=== PATIENT | male | born 1980 | race Caucasian/White ===

== ENCOUNTER 2025-01-13 03:00 | Inpatient (IN) | payer MEDICAID, OTHER ==
[2025-01-13] MEDS: SODIUM CHLORIDE 0.9% 1,000 ML IV STA ×2 (03:55→04:58)
[2025-01-13] MEDS: MAGNESIUM SULFATE-D5W PMX 1 GM in DEXTROSE/WATER 1 100ML.BAG IVPB ONE (03:56)
--- NOTE | 2025-01-13 04:00 | ED ---
General Adult HPI - General Chief complaint: Psychiatric Symptoms Stated complaint: suicidal Time Seen by Provider: 01/13/25 03:05 Source: patient, police, EMS, RN notes reviewed, old records reviewed Mode of arrival: EMS Limitations: no limitations - History of Present Illness Initial comments: 44-year-old male who presents emergency department after an intentional overdose. Patient states that he has been going through more stress than just wanted to stop it. Intentionally overdose with the intent of harming and killing himself. He drank half 1/5 of vodka this evening and took a handful of his trazodone tablets. We do estimate it to be approximately 17 tablets of 100 mg of tab trazodone. He filled his prescriptions on the and took a tablet on the in the evening. And then this evening, 01/12 he dumped pills in his palm and took them. Did not count them out. Prescription bottle had a total of 30 tablets. 12 tablets remaining. Fill date, as stated above was January 11. He currently denies any acute complaints. Denies homicidal ideations, times complaints. Denies any hallucinations. Presents for further evaluation at this time. - Related Data Home Medications Medication Instructions Recorded Confirmed levETIRAcetam [Keppra] 500 mg PO Q12HR 09/03/24 09/03/24 Previous Rx's Medication Instructions Recorded Folic Acid 1 mg PO DAILY 30 Days #30 tab 09/05/24 Melatonin [Melatonin Tr] 10 mg PO HS 30 Days #30 tab 09/05/24 Multivitamins, Thera [Multivitamin 1 each PO DAILY 30 Days #30 tab 09/05/24 (formulary)] Naltrexone HCl [Revia] 50 mg PO DAILY 30 Days #30 tab 09/05/24 Sertraline [Zoloft] 50 mg PO DAILY 30 Days #30 tab 09/05/24 Thiamine [Vitamin B-1] 100 mg PO DAILY 30 Days #30 tab 09/05/24 levETIRAcetam [Keppra] 500 mg PO Q12HR tab 09/05/24 traZODone HCL [Desyrel] 50 mg PO HS 30 Days #30 tab 09/05/24 Allergies Allergy/AdvReac Type Severity Reaction Status Date / Time bee venom protein (honey bee) Allergy Rash/Hives Verified 01/13/25 03:22 spider venom Allergy Swelling Verified 01/13/25 03:22 Review of Systems ROS Statement: Those systems with pertinent positive or pertinent negative responses have been documented in the HPI. Review of Systems: CONST: Denies fever EYES: Denies blurry vision ENT: Denies nasal congestion C/V: Denies Chest pain RESP: Denies shortness of breath GI: Denies abdominal pain : Denies dysuria SKIN: Denies rash. MSK: Denies joint pain. NEURO: Denies headache ROS Other: All systems not noted in ROS Statement are negative. Past Medical History Past Medical History: Seizure Disorder Additional Past Medical History / Comment(s): liver issues- History of Any Multi-Drug Resistant Organisms: None Reported Past Surgical History: No Surgical Hx Reported Past Anesthesia/Blood Transfusion Reactions: No Reported Reaction Past Psychological History: Anxiety, Bipolar, Depression, PTSD Smoking Status: Former smoker - Past Family History Mother History Unknown: Yes General Exam - General Exam Comments Initial Comments: General: Appears intoxicated HEAD: Normal with no signs of head trauma. EYES: PERRLA, EOMI, conjunctiva normal, no discharge. ENT: Hearing grossly intact, normal oropharynx. RESPIRATORY: Clear breath sounds bilaterally. No wheezes, rales, or rhonchi. C/V: Regular rate and rhythm. S1 and S2 auscultated, no edema, peripheral pulses 2+ and intact throughout ABD: Abd is soft, nontender, nondistended EXT: Normal range of motion, no obvious deformity SKIN: No rashes or lesions observed on exposed skin. NEURO: Alert and oriented x 4. Cranial nerves II-XII intact. No focal sensory or strength deficits. GCS of 15. Limitations: no limitations Course Vital Signs 01/13/25 01/13/25 01/13/25 03:15 04:04 04:05 Temperature 97.6 F Pulse Rate 88 68 Respiratory 17 17 17 Rate Blood Pressure 105/69 106/78 O2 Sat by Pulse 95 98 Oximetry Medical Decision Making - Medical Decision Making Was pt. sent in by a medical professional or institution (, PA, PLASTER [employer]M [employer]ER, urgent care, hospital, or long term...) When possible be specific @ -No Did you speak to anyone other than the patient for history (EMS, parent, family, police, friend...)? What history was obtained from this source @ -Spoke with EMS and police who are petitioning the patient. Did you review nursing and triage notes (agree or disagree)? Why? @ -I reviewed and agree with nursing and triage notes Were old charts reviewed (outside hosp., previous admission, EMS record, old EKG, old radiological studies, urgent care reports/EKG's, long term records)? Report findings @ -No old charts were reviewed Differential Diagnosis (chest pain, altered mental status, abdominal pain women, abdominal pain men, vaginal bleeding, weakness, fever, dyspnea, syncope, headac he, dizziness, GI bleed, back pain, seizure, CVA, palpatations, mental health, musculoskeletal)? @ -Differential Mental Health Depression, anxiety, bipolar, psychosis, schizophrenia, borderline personality, situational depression, adjustment disorder, behavioral disorder, brain tumor, malingering, substance abuse, encephalopathy, medication reaction, dementia, hypothyroidism, degenerative neurologic disorder, lupus.... This is not meant to be all-inclusive list. Also includes overdose. EKG interpreted by me (3pts min.). @ -As above X-rays interpreted by me (1pt min.). @ -None done CT interpreted by me (1pt min.). @ -None done U/S interpreted by me (1pt. min.). @ -None done What testing was considered but not performed or refused? (CT, X-rays, U/S, labs)? Why? @ -None What meds were considered but not given or refused? Why? @ -None Did you discuss the management of the patient with other professionals (professionals i.e. , PA, PLASTER [employer]M MAKER, lab, RT, psych nurse, geriatric social worker, receiving associate, teacher, telecommunications officer, pillowcase turner)? Give summary @ -Poison control notified of the patient. They recommend 10 to 12 hours of observation. Recommend watching out for QTc prolongation, serotonin syndrome effects, and sedative effects. Were otherwise in agreement the workup. Discussed with the admitting provider, ANAMARIA Membreno of [facility] who accepted the admission. Was smoking cessation discussed for >3mins.? @ -No Was critical care preformed (if so, how long)? @ -Yes, 33 minutes Were there social determinants of health that impacted care today? How? (Homelessness, low income, unemployed, alcoholism, drug addiction, transportation, low edu. Level, literacy, decrease access to med. care, care home, rehab)? @ -No Was there de-escalation of care discussed even if they declined (Discuss DNR or withdrawal of care, Hospice)? DNR status @ -No What co-morbidities impacted this encounter? (DM, HTN, Smoking, COPD, CAD, Cancer, CVA, ARF, Chemo, Hep., AIDS, mental health diagnosis, sleep apnea, morb id obesity)? @ -None Was patient admitted / discharged? Hospital course, mention meds given and rou te, prescriptions, significant lab abnormalities, going to OR and other pertinent info. @ -Patient presents intoxicated with alcohol with overdose attempt with trazodone. Suspect he took 17 tablets of 100 mg of trazodone. This was within 2 hours of presentation to the ER. Also drank half 1/5 of vodka. Vitals are within acceptable limits. Currently exhibiting no signs of serotonin syndrome. GCS of 15 and is alert and oriented with no sedative effects at this time. We obtain general overdose recommend speak with poison control. They were in agreement this plan. EKG shows slight QT prolongation and therefore patient given a dose of IV magnesium. Poison control recommended 10 to 12 hours of observation with monitoring for possible QT prolongation, serotonin syndrome, sedative effects. They were otherwise in agreement the plan for workup. Patient administered 1 L fluid bolus and placed on maintenance fluids in addition to 1 g of IV magnesium. Laboratory studies returned remarkable for mild hypokalemia 3.2 which was replenished. Serum alcohol level is 244. On reevaluation, patient is resting comfortably. No acute complaints still. I discussed workup with him. He will be admitted to medicine with psychiatric consult. He requires 10 to 12 hours of observation prior to being medically cleared. He was in agreement this plan. I spoke with the admitting provider, ANAMARIA Membreno of [facility] who accepted the admission. Undiagnosed new problem with uncertain prognosis? @ -No Drug Therapy requiring intensive monitoring for toxicity (Heparin, Nitro, Insulin, Cardizem)? @ -No Were any procedures done? @ -No Diagnosis/symptom? @ -Intentional trazodone overdose, suicide attempt, alcohol intoxication Acute, or Chronic, or Acute on Chronic? @ -Acute Uncomplicated (without systemic symptoms) or Complicated (systemic symptoms)? @ -Complicated Side effects of treatment? @ -None Exacerbation, Progression, or Severe Exacerbation] @ -No Poses a threat to life or bodily function? @ -Yes - Lab Data Result diagrams: 01/13/25 03:46 01/13/25 03:46 Lab Results 01/13/25 01/13/25 01/13/25 Range/Units 03:46 03:46 03:46 WBC 7.49 (4.50-10.00) 10*3/uL RBC 4.16 L (4.40-5.60) 10*6/uL Hgb 12.9 L (13.0-17.0) g/dL Hct 38.3 L (39.6-50.0) % MCV 92.1 (80.0-97.0) fL MCH 31.0 (27.0-32.0) pg MCHC 33.7 (32.0-37.0) g/dL Plt Count 226 (140-440) 10*3/uL MPV 9.5 (9.5-12.2) fL Immature Gran % (Auto) 0.4 % Neutrophils % 47.7 % Lymphocytes % 33.5 % Monocytes % 13.1 % Eosinophils % 4.4 % Basophils % 0.9 % Immature Gran # 0.03 (0.00-0.04) 10*3/uL Neutrophils # 3.57 (1.80-7.70) 10*3/uL Lymphocytes # 2.51 (0.90-5.00) 10*3/uL Monocytes # 0.98 (0.20-1.00) 10*3/uL Eosinophils # 0.33 (0.04-0.35) 10*3/uL Basophils # 0.07 (0.00-0.10) 10*3/uL PT 12.0 (10.0-12.5) sec INR 1.1 (<1.2) Sodium 143 (137-145) mmol/L Potassium 3.2 L (3.5-5.1) mmol/L Chloride 105 (98-107) mmol/L Carbon Dioxide 24 (22-30) mmol/L Anion Gap 14 mmol/L BUN 3 L (9-20) mg/dL Creatinine 0.65 L (0.66-1.25) mg/dL Est GFR (CKD-EPI)AfAm >90 (>60 ml/min/1.73 sqM) Est GFR (CKD-EPI)NonAf >90 (>60 ml/min/1.73 sqM) Glucose 105 H (74-99) mg/dL Plasma Lactic Acid Adam (0.7-2.0) mmol/L Calcium 9.2 (8.4-10.2) mg/dL Total Bilirubin 0.2 (0.2-1.3) mg/dL Conjugated Bilirubin 0.0 (0.0-0.3) mg/dL Unconjugated Bilirubin 0.1 (0.0-1.1) mg/dL Delta Bilirubin 0.1 (0.0-0.2) mg/dL AST 35 (17-59) U/L ALT 36 (4-49) U/L Alkaline Phosphatase 84 (38-126) U/L Total Protein 6.7 (6.3-8.2) g/dL Albumin 4.4 (3.5-5.0) g/dL Salicylates <1.0 mg/dL Acetaminophen <10.0 ug/mL Serum Alcohol 244 H* mg/dL 01/13/25 Range/Units 03:46 WBC (4.50-10.00) 10*3/uL RBC (4.40-5.60) 10*6/uL Hgb (13.0-17.0) g/dL Hct (39.6-50.0) % MCV (80.0-97.0) fL MCH (27.0-32.0) pg MCHC (32.0-37.0) g/dL Plt Count (140-440) 10*3/uL MPV (9.5-12.2) fL Immature Gran % (Auto) % Neutrophils % % Lymphocytes % % Monocytes % % Eosinophils % % Basophils % % Immature Gran # (0.00-0.04) 10*3/uL Neutrophils # (1.80-7.70) 10*3/uL Lymphocytes # (0.90-5.00) 10*3/uL Monocytes # (0.20-1.00) 10*3/uL Eosinophils # (0.04-0.35) 10*3/uL Basophils # (0.00-0.10) 10*3/uL PT (10.0-12.5) sec INR (<1.2) Sodium (137-145) mmol/L Potassium (3.5-5.1) mmol/L Chloride (98-107) mmol/L Carbon Dioxide (22-30) mmol/L Anion Gap mmol/L BUN (9-20) mg/dL Creatinine (0.66-1.25) mg/dL Est GFR (CKD-EPI)AfAm (>60 ml/min/1.73 sqM) Est GFR (CKD-EPI)NonAf (>60 ml/min/1.73 sqM) Glucose (74-99) mg/dL Plasma Lactic Acid Adam 1.2 (0.7-2.0) mmol/L Calcium (8.4-10.2) mg/dL Total Bilirubin (0.2-1.3) mg/dL Conjugated Bilirubin (0.0-0.3) mg/dL Unconjugated Bilirubin (0.0-1.1) mg/dL Delta Bilirubin (0.0-0.2) mg/dL AST (17-59) U/L ALT (4-49) U/L Alkaline Phosphatase (38-126) U/L Total Protein (6.3-8.2) g/dL Albumin (3.5-5.0) g/dL Salicylates mg/dL Acetaminophen ug/mL Serum Alcohol mg/dL - EKG Data -: EKG Interpreted by Me EKG Comments: 12-lead Electrocardiogram Interpretation Note EKG was reviewed and interpreted by myself. 12-lead ECG performed at 0326 is interpreted by me as revealing normal sinus rhythm at a rate of 73 beats per minute. [place] is normal. OK interval is 129 ms, QRS duration is 89 ms, QTc is slightly prolonged at 465 ms. There were no ST or T wave abnormalities to sug gest myocardial ischemia or injury. R wave progression across the precordium was satisfactory. By my interpretation this EKG is non-diagnostic for acute ischemia. Critical Care Time Critical Care Time: Yes Total Critical Care Time: 33 Disposition Clinical Impression: Intentional overdose of trazodone, Attempted suicide, Alcohol intoxication Disposition: ADMITTED IP TO THIS HOSP Condition: Stable Referrals: None,Stated [Primary Care Provider] - 1-2 days Time of Disposition: 05:35
[2025-01-13 04:02] LABS: Basophils # (A) 0.07 10*3/uL (0.00-0.10); Basophils % (A) 0.9 %; Eosinophils # (A) 0.33 10*3/uL (0.04-0.35); Eosinophils % (A) 4.4 %; HCT 38.3 % (39.6-50.0); HGB 12.9 g/dL (13.0-17.0); Lymphocytes # (A) 2.51 10*3/uL (0.90-5.00); Lymphocytes % (A) 33.5 %; MCHC 33.7 g/dL (32.0-37.0); MCV 92.1 fL (80.0-97.0); Mean Platelet Volume 9.5 fL (9.5-12.2); Monocytes # (A) 0.98 10*3/uL (0.20-1.00); Monocytes % (A) 13.1 %; Neutrophils # (A) 3.57 10*3/uL (1.80-7.70); Neutrophils % (A) 47.7 %; Platelet Count 226 10*3/uL (140-440); RBC 4.16 10*6/uL (4.40-5.60); RDW 14.3 % (11.5-14.5); WBC 7.49 10*3/uL (4.50-10.00)
[2025-01-13 04:14] LABS: INR 1.1 (<1.2)
[2025-01-13 04:19] LABS: ALT 36 U/L (4-49); AST 35 U/L (17-59); Acetaminophen <10.0 ug/mL; African American GFR (CKD) >90 (>60 ml/min/1.73 sqM); Albumin 4.4 g/dL (3.5-5.0); Alkaline Phosphatase 84 U/L (38-126); Anion Gap 14 mmol/L; Bilirubin, Delta 0.1 mg/dL (0.0-0.2); Bilirubin,Unconjugated 0.1 mg/dL (0.0-1.1); Blood Urea Nitrogen 3 mg/dL (9-20); Calcium 9.2 mg/dL (8.4-10.2); Carbon Dioxide 24 mmol/L (22-30); Chloride 105 mmol/L (98-107); Glucose 105 mg/dL (74-99); Non-African American GFR(CKD) >90 (>60 ml/min/1.73 sqM); Potassium 3.2 mmol/L (3.5-5.1); Salicylate <1.0 mg/dL; Sodium 143 mmol/L (137-145); Total Bilirubin 0.2 mg/dL (0.2-1.3); Total Protein 6.7 g/dL (6.3-8.2)
[2025-01-13 04:37] LABS: Alcohol 244 mg/dL
[2025-01-13] MEDS ORDERED: Potassium Replacement Protocol 1 EACH MISC MISCELLANE PRN (05:11)
[2025-01-13] MEDS: POTASSIUM CHLORIDE ER 20 MEQ TAB.ER PO SCH (05:30)
[2025-01-13] MEDS ORDERED: NALOXONE 0.4 MG/ML 1 ML VIAL IV PRN (05:38)
[2025-01-13 07:11] LABS: Appearance,Urine Clear (Clear); Bilirubin,Urine Negative (Negative); Blood,Urine Negative (Negative); Color,Urine Colorless; Glucose,Urine (UA) Negative (Negative); Ketones,Urine Negative (Negative); Leukocyte Esterase,Urine Negative (Negative); Nitrite,Urine Negative (Negative); PH, Urine 5.5 (5.0-8.0); Protein,Urine Negative (Negative); Specific Gravity,Urine 1.003 (1.001-1.035); Urobilinogen,Urine <2.0 mg/dL (<2.0)
[2025-01-13 07:31] LABS: Amphetamine Screen,Urine Not Detected (NotDetected); Barbiturate Screen,Urine Not Detected (NotDetected); Benzodiazepines Screen,Urine Not Detected (NotDetected); Cocaine Screen,Urine Not Detected (NotDetected); Methadone Screen, Urine Not Detected (NotDetected); Opiate Screen,Urine Not Detected (NotDetected); Oxycodone Screen, Urine Not Detected (NotDetected); Phencyclidine Screen,Urine Not Detected (NotDetected); Tricyclic Antidepressant,Urine Not Detected (NotDetected); Urn Cannabinoid Scrn Not Detected (NotDetected)
--- NOTE | 2025-01-13 17:53 | P.CN ---
Psychiatric Consult - . Consult date: 01/13/25 Consult:: 01/13/25 17:45 In the ER:44-year-old male who presents emergency department after an intentional overdose. Patient states that he has been going through more stress than just wanted to stop it. Intentionally overdose with the intent of harming and killing himself. He drank half 1/5 of vodka this evening and took a handful of his trazodone tablets. We do estimate it to be approximately 17 tablets of 100 mg of tab trazodone. He filled his prescriptions on the and took a tablet on the in the evening. And then this evening, 01/12 he dumped pills in his palm and took them. Did not count them out. Prescription bottle had a total of 30 tablets. 12 tablets remaining. Fill date, as stated above was January 11. He currently denies any acute complaints. Denies homicidal ideations, times complaints. Denies any hallucinations. Presents for further evaluation at this time. SUBJECTIVE: He denies any psychotic symptoms, any suicidal symptoms. He says that since starting on Zoloft that his family and friends all say that they have the "old" Edwin back.He says that he just became overwhelmed with his sister selling her house out from under him and with all the efforts of moving and impulsively tried suicide. He has a psychiatrist and a counselor. He has a place to move to that belongs to a friend of 30 years. 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 He says that his concentration and energy are recovering and that he feels much better since coming to the hospital. MENTAL STATUS: He is alert, with good eye contact and good response times and normal psychomotor activity. No signs of hearing voices or of paranoia. He is oriented x4 logical and cooperative. energy level is good. ASSESSMENT: There are no signs of physical depression and he pearl ongoing suicidal thoughts and is committed to getting help No need for psych hospitalization.
--- NOTE | 2025-01-13 23:08 | P.HPIM ---
History of Present Illness This is a pleasant 44 years old male with past medical history of depression Presents because of alcohol intoxication and suicidal attempt by taking 17 pills of 100 mg of trazodone with his fifth of vodka Patient currently awake alert and oriented he looks calm. Currently patient calm denies any specific symptoms no GI or symptoms no chest pain dizziness weakness numbness He denies smoking but he vapes He drinks liquor 1-2/5 Also he has history of seizure, he used to take Keppra but stopped taking it, our staff called his pharmacy and last time was filled was March 2024. Patient denies any current seizure-like activity we recommend patient follow-up with his PCP and/your neurologist to decide about when to resume his seizure medication or not He takes Zoloft and trazodone at home Sitter at bedside Review of Systems Review of systems CONSTITUTIONAL: No fever, no malaise, no fatigue. HEENT: No recent visual problems or hearing problems. Denied any sore throat. CARDIOVASCULAR: No orthopnea, PND, no palpitations, no syncope. PULMONARY: No shortness of breath, no cough, no hemoptysis. GASTROINTESTINAL: No diarrhea, no nausea, no vomiting, no abdominal pain. Normoactive bowel sounds. NEUROLOGICAL: No headaches, no weakness, no numbness. HEMATOLOGICAL: Denies any bleeding or petechiae. GENITOURINARY: Denies any burning micturition, frequency, or urgency. MUSCULOSKELETAL/RHEUMATOLOGICAL: Denies any joint pain, swelling, or any muscle pain. ENDOCRINE: Denies any polyuria or polydipsia. Past Medical History Past Medical History: Seizure Disorder Additional Past Medical History / Comment(s): liver issues- History of Any Multi-Drug Resistant Organisms: None Reported Past Surgical History: No Surgical Hx Reported Past Anesthesia/Blood Transfusion Reactions: No Reported Reaction Past Psychological History: Anxiety, Bipolar, Depression, PTSD Smoking Status: Former smoker - Past Family History Mother History Unknown: Yes Medications and Allergies Home Medications Medication Instructions Recorded Confirmed Type Sertraline [Zoloft] 50 mg PO DAILY 30 Days #30 tab 09/05/24 01/13/25 Rx traZODone HCL [Desyrel] 100 mg PO HS PRN 01/13/25 01/13/25 History Allergies Allergy/AdvReac Type Severity Reaction Status Date / Time bee venom protein (honey bee) Allergy Rash/Hives Verified 01/13/25 09:25 spider venom Allergy Swelling Verified 01/13/25 09:25 Physical Exam Vitals: Vital Signs Temp Pulse Resp BP Pulse Ox 01/13/25 10:53 73 18 98/71 97 01/13/25 09:12 84 20 97/65 95 01/13/25 06:11 89 17 95/62 95 01/13/25 04:05 17 01/13/25 04:04 68 17 106/78 98 01/13/25 03:15 97.6 F 88 17 105/69 95 Intake and Output 01/12/25 01/13/25 01/13/25 22:59 06:59 14:59 Other: Weight 54.431 kg GENERAL: The patient is alert and oriented x3, not in any acute distress. Well developed, well nourished. HEENT: Pupils are round and equally reacting to light. EOMI. No scleral icterus. No conjunctival pallor. Normocephalic, atraumatic. No pharyngeal erythema. No thyromegaly. CARDIOVASCULAR: S1 and S2 present. No murmurs, rubs, or gallops. PULMONARY: Chest is clear to auscultation, no wheezing , no crackles. ABDOMEN: Soft, nontender, nondistended, normoactive bowel sounds. No palpable organomegaly. MUSCULOSKELETAL: No joint swelling or deformity. EXTREMITIES: No cyanosis, clubbing, or pedal edema. NEUROLOGICAL: Gross neurological examination did not reveal any focal deficits. SKIN: No rashes. no petechiae. Results CBC & Chem 7: 01/13/25 03:46 01/13/25 14:17 Labs: Abnormal Lab Results - Last 24 Hours (Table) 01/13/25 01/13/25 Range/Units 03:46 03:46 RBC 4.16 L (4.40-5.60) 10*6/uL Hgb 12.9 L (13.0-17.0) g/dL Hct 38.3 L (39.6-50.0) % Potassium 3.2 L (3.5-5.1) mmol/L BUN 3 L (9-20) mg/dL Creatinine 0.65 L (0.66-1.25) mg/dL Glucose 105 H (74-99) mg/dL Serum Alcohol 244 H* mg/dL Assessment and Plan Assessment: Depression and suicidal ideation Drug overdose Alcohol use disorders and at risk with withdrawal Alcohol intoxication History of seizure disorder, nonadherent to therapy Plan: Keep sitter at bedside Psychiatrist evaluate the patient and consulted Continue gentle hydration Replace and monitor electrolytes Labs and medication were reviewed.. Continue same treatment. Continue with symptomatic treatment. Resume home medication. Monitor labs and vitals. DVT and GI prophylaxis. Further recommendations as per clinical course of the patient DVT prophylaxis: Subcutaneous heparin GI Prophylaxis: Pepcid PT/OT: Pending Prognosis is guarded
[2025-01-14 08:20] VITALS: BP 124/73; PULSE 48; RESP 14; TEMP 98.2
[2025-01-14] MEDS: SERTRALINE 50 MG TAB PO SCH (09:21)
[2025-01-14] MEDS: HEPARIN SODIUM,PORCINE 5,000 UNIT/ML 1 ML VIAL SQ SCH (09:21)
[2025-01-14] MEDS: FAMOTIDINE 20 MG/2 ML VIAL IV SCH (09:21)
[2025-01-14 10:01] LABS: Basophils # (A) 0.06 X 10*3/uL (0.00-0.10); Basophils % (A) 0.9 %; Eosinophils # (A) 0.33 X 10*3/uL (0.04-0.35); Eosinophils % (A) 4.9 %; HCT 37.4 % (39.6-50.0); HGB 12.1 g/dL (13.0-17.0); Lymphocytes # (A) 2.04 X 10*3/uL (0.90-5.00); Lymphocytes % (A) 30.4 %; MCH 30.7 pg (27.0-32.0); MCHC 32.4 g/dL (32.0-37.0); MCV 94.9 FL (80.0-97.0); Mean Platelet Volume 10.6 FL (9.5-12.2); Monocytes % (A) 14.9 %; NRBC Per 100 WBC 0 X 10*3/uL (0.00-0.01); Neutrophils # (A) 3.26 X 10*3/uL (1.80-7.70); Neutrophils % (A) 48.5 %; Platelet Count 235 X 10*3/uL (140-440); RBC 3.94 X 10*6/uL (4.40-5.60); RDW 14.4 % (11.5-14.5); WBC 6.72 X 10*3/uL (4.50-10.00)
[2025-01-14 10:21] LABS: ALT 33 U/L (10-49); AST 32 U/L (14-35); Albumin 3.9 g/dL (3.8-4.9); Albumin/Globulin Ratio 2.17 Ratio (1.60-3.17); Alkaline Phosphatase 106 U/L (41-126); BUN/Creat Ratio 8.78 Ratio (12.00-20.00); Blood Urea Nitrogen 7.9 mg/dL (9.0-27.0); Calcium 9.2 mg/dL (8.7-10.3); Carbon Dioxide 25.2 mmol/L (21.6-31.8); Chloride 107 mmol/L (96-109); Globulin 1.8 g/dL (1.6-3.3); Glucose 98 mg/dL (70-110); Magnesium 1.7 mg/dL (1.5-2.4); Potassium 4.3 mmol/L (3.5-5.5); Sodium 141 mmol/L (135-145); Total Bilirubin 0.3 mg/dL (0.3-1.2); Total Protein 5.7 g/dL (6.2-8.2)
== END 2025-01-14 15:00 | disposition home or self-care (01) | DRG 817 ==
LOC: EC 03:00 → 5NMEDONC 05:39 → 6NMEDSUR 16:59
PROVIDERS: ADMIT Hospitalist; ATTEND Hospitalist
DX: T43.212A Poisoning by selective serotonin and norepinephrine reuptake inhibitors, intentional self-harm, initial encounter (principal); T51.0X2A Toxic effect of ethanol, intentional self-harm, initial encounter; F10.929 Alcohol use, unspecified with intoxication, unspecified; Y90.8 Blood alcohol level of 240 mg/100 ml or more; F17.290 Nicotine dependence, other tobacco product, uncomplicated; F31.9 Bipolar disorder, unspecified; F41.9 Anxiety disorder, unspecified; F43.10 Post-traumatic stress disorder, unspecified; G40.909 Epilepsy, unspecified, not intractable, without status epilepticus; Z79.899 Other long term (current) drug therapy; T42.76XA Underdosing of unspecified antiepileptic and sedative-hypnotic drugs, initial encounter; Z91.128 Patient's intentional underdosing of medication regimen for other reason
CPT/HCPCS: 36415; 80053; 80143; 80179; 80306; 80320; 81003; 82248; 83605; 83735; 84132; 85025; 85610; 93005; 96361; 96365; 96366; 99291